=== PATIENT | male | born 1965 | race Caucasian/White ===

== ENCOUNTER 2024-08-11 23:00 | Inpatient (IN) | payer OTHER ==
[~2024-08-11] VITALS: Ht 167.6 cm; Wt 63.5 kg
[2024-08-11] MEDS: LEVETIRACETAM 1000MG PREMIX 100 ML IV ONE (23:42)
[2024-08-11] MEDS: ONDANSETRON HCL 4MG/2ML INJ IV STA (23:43)
[2024-08-11] MEDS: SODIUM CHLORIDE 0.9% 1,000 ML IV ONE (23:43)
[2024-08-11] MEDS: LORAZEPAM 2MG/ML INJ IV ONE (23:43)
[2024-08-11 23:50] LABS: CHLORIDE 77 mEq/L (98-107); POTASSIUM 4.9 mEq/L (3.5-5.1)
[2024-08-11 23:51] LABS: CALCIUM 9.1 mg/dL (8.7-10.4); CARBON DIOXIDE 22 mEq/L (21-32)
[2024-08-11 23:56] LABS: CREATININE 1.2 mg/dL (0.6-1.3); GLUCOSE 349 mg/dL (70-105); UREA NITROGEN BLOOD 28 mg/dL (9-23)
[2024-08-11 23:57] LABS: TROPONIN I HIGH SENSITIVITY 7 ng/L (3.0-53)
[2024-08-11 23:58] LABS: BETA HYDROXYBUTYRATE 0.2 mMol/L (0.0-0.3); CREATINE KINASE 437 IU/L (46-171)
[2024-08-12 00:14] LABS: BG BASE EXCESS -0.2 mmol/L (-2.0-3.0); BG CARBOXYHEMOGLOBIN 0.2 % (0.5-1.5); BG DEOXYHEMOGLOBIN 7.4 % (0.0-5.0); BG FRACTION INSPIRED OXYGEN 21; BG METHEMOGLOBIN 0.3 % (0.5-1.5); BG OXYGEN SATURATION 92.6 % (94.0-98.0); BG OXYHEMOGLOBIN 92.1 % (94.0-98.0); BG PH 7.419 (7.350-7.450); BG PO2 66.5 mmHg (83.0-108.0); BG SAMPLE SITE LEFT RADIAL; BG VENT MODE ROOM AIR
[2024-08-12 00:21] LABS: LACTIC ACID 5.9 mmol/L (0.4-2.0); SODIUM 110 mEq/L (136-145)
[2024-08-12 00:22] LABS: ETHANOL BLOOD < 10 mg/dL (<10)
[2024-08-12] MEDS ORDERED: SODIUM CHLORIDE 3% 150 ML IV ONE (00:30)
[2024-08-12 00:45] LABS: BASOPHILS % 0.2 % (0.0-2.0); EOSINOPHILS % 0.6 % (0.0-5.0); HEMATOCRIT. 37.3 % (42.0-52.0); HEMOGLOBIN. 13.3 g/dL (14.0-18.0); LYMPHOCYTES % 20.5 % (20.0-50.0); MEAN CORPUSCULAR HEMOGLOBIN 30.5 pg (28.0-32.0); MEAN CORPUSCULAR HGB CONC 35.7 g/dL (31.0-37.0); MEAN CORPUSCULAR VOLUME 85.5 fL (80.0-94.0); MEAN PLATELET VOLUME 8.2 fl (7.4-10.4); MONOCYTES % 7.5 % (2.0-8.0); NEUTROPHILS % 71.2 % (40.0-76.0); PLATELET 380 x1000/uL (130-400); RED BLOOD CELL COUNT 4.36 mill/uL (4.7-6.1); RED CELL DISTRIBUTION WIDTH 12.6 % (11.6-14.6); WHITE BLOOD COUNT 13.4 x1000/uL (4.5-11.0)
[2024-08-12] MEDS: SODIUM CHLORIDE 3% 150 ML IV SCH (01:04)
[2024-08-12 01:22] LABS: CLARITY URINE CLEAR (CLEAR); COLOR URINE YELLOW (YELLOW); GLUCOSE URINE 3+ (NEGATIVE); KETONES URINE NEGATIVE (NEGATIVE); LEUKOCYTE ESTERASE URINE NEGATIVE (NEGATIVE); NITRITE URINE NEGATIVE (NEGATIVE); OCCULT BLOOD URINE NEGATIVE (NEGATIVE); PROTEIN URINE TRACE (NEGATIVE); SPECIFIC GRAVITY URINE 1.015 (1.005-1.030); UROBILINOGEN URINE 0.2 E.U./dL (0.2-1.0)
[2024-08-12 01:34] LABS: *AMPHETAMINES SCREEN URINE NEGATIVE (NEGATIVE); *BARBITURATES SCREEN URINE NEGATIVE (NEGATIVE); *BENZODIAZEPINES SCREEN URINE NEGATIVE (NEGATIVE); *COCAINE SCREEN URINE PRESUMPTIVE POSITIVE (NEGATIVE)
[2024-08-12 01:35] LABS: CANNABINOID URINE SCREEN NEGATIVE (NEGATIVE); ECSTASY MDMA SCREEN URINE NEGATIVE (NEGATIVE); METHADONE URINE SCREEN NEGATIVE (NEGATIVE); OPIATES URINE SCREEN NEGATIVE (NEGATIVE); PHENCYCLIDINE URINE SCREEN NEGATIVE (NEGATIVE)
[2024-08-12 02:23] LABS: BACTERIA URINE NONE SEEN; RBC URINE 0-2 /hpf (0-2); SQUAMOUS EPITHELIAL CELL URINE NONE SEEN /lpf (RARE/1+); WBC URINE NONE SEEN /hpf (0-2)
[2024-08-12 09:18] LABS: BASOPHILS % 0.3 % (0.0-2.0); EOSINOPHILS % 0.2 % (0.0-5.0); HEMATOCRIT. 33.9 % (42.0-52.0); HEMOGLOBIN. 12.3 g/dL (14.0-18.0); LYMPHOCYTES % 12.3 % (20.0-50.0); MEAN CORPUSCULAR HEMOGLOBIN 30.5 pg (28.0-32.0); MEAN CORPUSCULAR HGB CONC 36.2 g/dL (31.0-37.0); MEAN CORPUSCULAR VOLUME 84.3 fL (80.0-94.0); MEAN PLATELET VOLUME 7.6 fl (7.4-10.4); MONOCYTES % 7.9 % (2.0-8.0); NEUTROPHILS % 79.3 % (40.0-76.0); PLATELET 383 x1000/uL (130-400); RED BLOOD CELL COUNT 4.02 mill/uL (4.7-6.1); RED CELL DISTRIBUTION WIDTH 12.6 % (11.6-14.6)
[2024-08-12 09:25] LABS: CHLORIDE 90 mEq/L (98-107); POTASSIUM 4.5 mEq/L (3.5-5.1)
[2024-08-12 09:26] LABS: CARBON DIOXIDE 25 mEq/L (21-32)
[2024-08-12 09:31] LABS: CREATININE 1.1 mg/dL (0.6-1.3); GLUCOSE 266 mg/dL (70-105); UREA NITROGEN BLOOD 22 mg/dL (9-23)
[2024-08-12 09:45] LABS: DIFFERENTIAL COMMENT 1
[2024-08-12 10:04] LABS: SODIUM 122 mEq/L (136-145)
[2024-08-12] MEDS ORDERED: DEXTROSE 50% WATER 50ML SYRINGE IV PRN (10:15)
[2024-08-12] MEDS ORDERED: ACETAMINOPHEN 325MG TABLET PO PRN (10:15)
[2024-08-12] MEDS ORDERED: ONDANSETRON HCL 4MG/2ML INJ IV PRN (10:15)
[2024-08-12] MEDS: INSULIN LISPRO 100 UNITS/ML SUBCUT SCH (13:57)
[2024-08-12] MEDS: BLOOD SUGAR DIAGNOSTIC STRIP TEST SCH (13:57)
[2024-08-12 14:00] VITALS: BP 95/65; PULSE 68; RESP 16; TEMP 36.418
[2024-08-12 16:00] VITALS: BP 95/65; PULSE 88; RESP 16; TEMP 36.50292; O2SAT 100
[2024-08-12] MEDS: SODIUM CHLORIDE 0.9% 1,000 ML IV SCH (20:51)
[2024-08-12] MEDS: LEVETIRACETAM 500MG TABLET PO SCH (21:20)
[2024-08-12 21:38] VITALS: BP 96/60; PULSE 80; RESP 18; TEMP 36.89184; O2SAT 97
[2024-08-13] VITALS: BP 90/54; RESP 18; TEMP 36.61404; O2SAT 98
[2024-08-13 04:00] VITALS: BP 121/79; RESP 18; TEMP 36.3918; O2SAT 98
[2024-08-13 06:45] LABS: CARBON DIOXIDE 25 mEq/L (21-32); CHLORIDE 91 mEq/L (98-107); POTASSIUM 4.4 mEq/L (3.5-5.1); SODIUM 124 mEq/L (136-145)
[2024-08-13 06:51] LABS: GLUCOSE 169 mg/dL (70-105); UREA NITROGEN BLOOD 23 mg/dL (9-23)
[2024-08-13 07:01] LABS: BASOPHILS % 0.3 % (0.0-2.0); EOSINOPHILS % 0.5 % (0.0-5.0); HEMATOCRIT. 36.6 % (42.0-52.0); LYMPHOCYTES % 15.4 % (20.0-50.0); MEAN CORPUSCULAR HEMOGLOBIN 31.3 pg (28.0-32.0); MEAN CORPUSCULAR HGB CONC 35.5 g/dL (31.0-37.0); MEAN CORPUSCULAR VOLUME 88.3 fL (80.0-94.0); MEAN PLATELET VOLUME 7.7 fl (7.4-10.4); MONOCYTES % 8.1 % (2.0-8.0); NEUTROPHILS % 75.7 % (40.0-76.0); PLATELET 375 x1000/uL (130-400); RED BLOOD CELL COUNT 4.14 mill/uL (4.7-6.1); RED CELL DISTRIBUTION WIDTH 12.5 % (11.6-14.6); WHITE BLOOD COUNT 11.3 x1000/uL (4.5-11.0)
[2024-08-13 08:00] VITALS: BP 143/71; RESP 18; TEMP 36.22512; O2SAT 100
[2024-08-13 12:00] VITALS: BP 128/59; RESP 20; TEMP 36.50292; O2SAT 100
[2024-08-13 16:00] VITALS: BP_SYST 90; BP_SYST 99; BP_DIAS 62; RESP 20; TEMP 36.33624; O2SAT 100
[2024-08-13 18:35] VITALS: BP 99/62; PULSE 91; TEMP 97.4; O2SAT 100
== END 2024-08-13 19:47 | disposition short-term general hospital (02) | DRG 101 ==
LOC: ER 23:00 → 5WST 08-12 03:28 → EDBEDREQ 08-12 03:30 → EDBEDREQTM 08-12 03:30 → EDBEDREQSVC 08-12 11:40
PROVIDERS: ADMIT Internal Medicine; ATTEND Internal Medicine
DX: R56.9 Unspecified convulsions (principal); E87.1 Hypo-osmolality and hyponatremia; E87.20 Acidosis, unspecified; M62.82 Rhabdomyolysis; E78.00 Pure hypercholesterolemia, unspecified; E11.9 Type 2 diabetes mellitus without complications; J45.909 Unspecified asthma, uncomplicated; F14.129 Cocaine abuse with intoxication, unspecified; I10 Essential (primary) hypertension; Z82.49 Family history of ischemic heart disease and other diseases of the circulatory system
CPT/HCPCS: 36415; 36600; 71045; 80048; 80305; 80320; 81003; 82010; 82375; 82550; 82805; 82962; 83605; 83930; 84484; 85025; 93005; 99291; A4606; J1815; J1953; J2060; J2405; J7030; G0480